=== PATIENT | female | born 1995 ===

== ENCOUNTER 2017-05-25 12:25 | Emergency (ER) | payer MEDICAID, OTHER ==
[2017-05-25 12:25] VITALS: BMI 17.5
[2017-05-25 12:33] VITALS: TEMP 97.8; O2SAT 99
[2017-05-25] MEDS ORDERED: Bacitracin 500 Units/gm Oint Foilpak UD TOP ONE (12:55)
[2017-05-25] MEDS ORDERED: Tetanus/Diphtheria Toxoids 0.5 ml Syringe IM ONE (12:55)
--- NOTE | 2017-05-25 12:58 | C.PDOC ---
History Of Present Illness 21 year old female presents to the ED for tetanus vaccination, as per request of employer, following a cut to the left fourth digit with a box loader yesterday while at work. Patient reports wound was bleeding at the time, it was cleaned, and has stopped bleeding and is well healing. She denies fever, discharge, sensory changes, or other injuries. Time Seen by Provider: 05/25/17 12:34 Chief Complaint (Nursing): Abnormal Skin Integrity History Per: Patient History/Exam Limitations: no limitations Onset/Duration Of Symptoms: Days (1 day ) Current Symptoms Are (Timing): Still Present Location Of Injury: Left: Hand (fourth digit ) Quality Of Symptoms: denies: Painful, Draining Severity: Mild Past Medical History Reviewed: Historical Data, Nursing Documentation, Vital Signs Vital Signs: Last Vital Signs Temp 97.8 F 05/25/17 12:28 Pulse 72 05/25/17 13:18 Resp 20 05/25/17 13:18 BP 118/72 05/25/17 13:18 Pulse Ox 99 05/25/17 17:29 - Medical History PMH: Anemia, Anxiety, Depression Family History: States: No Known Family Hx - Social History Hx Tobacco Use: Yes Hx Alcohol Use: Yes Hx Substance Use: No - Immunization History Hx Tetanus Toxoid Vaccination: No Hx Influenza Vaccination: No Hx Pneumococcal Vaccination: No Review Of Systems Except As Marked, All Systems Reviewed And Found Negative. Constitutional: Negative for: Fever, Chills Skin: Positive for: Other (skin wound on finger). Negative for: Rash Neurological: Negative for: Weakness, Numbness Physical Exam - Physical Exam Appears: Well, Non-toxic, No Acute Distress Skin: Warm, Dry, Other (0.5 cm superficial laceration to dorsal left hand fourth digit, immediately distal to MCP. No bleeding or discharge) Cardiovascular: Rhythm Regular Respiratory: Normal Breath Sounds, No Rales, No Rhonchi, No Wheezing Extremity: Normal ROM, No Tenderness, Capillary Refill (< 2 sec all digits ), No Deformity, No Swelling Extremity: Bilateral: Normal Color And Temperature, Normal ROM Pulses: Left Radial: Normal, Right Radial: Normal Neurological/Psych: Oriented x3, Normal Motor, Normal Sensation Gait: Steady ED Course And Treatment O2 Sat by Pulse Oximetry: 99 (RA) Pulse Ox Interpretation: Normal Progress Note: Patient given IM tetanus vaccination. Bacitracin applied to laceration by nurse + band aid. She was instructed to follow up with PMD/ clinic in 1-2 days, and she understands she should return to ED if symptoms worsen. Disposition Counseled Patient/Family Regarding: Studies Performed, Diagnosis, Need For Followup - Disposition Referrals: Shaik Sigala MD [Staff Provider] - Disposition: HOME/ ROUTINE Disposition Time: 13:10 Condition: STABLE Additional Instructions: FOLLOW UP WITH YOUR DOCTOR IN 1-2 DAYS RETURN TO ER IF YOU DEVELOP ANY REDNESS, SWELLING, PAIN, FEVER, DISCHARGE OR ANY OTHER CONCERNING SYMPTOMS Instructions: Finger Laceration (ED) Forms: [employer] (Italian), Work Excuse Print Language: VIETNAMESE - POA Present On Arrival: Falls Or Trauma - Clinical Impression Clinical Impression: Superficial laceration of skin, Tetanus toxoid vaccination administered at current visit - Scribe Statement The provider has reviewed the documentation as recorded by the Scribe Karoline Wilkerson All medical record entries made by the Scribe were at my direction and personally dictated by me. I have reviewed the chart and agree that the record accurately reflects my personal performance of the history, physical exam, medical decision making, and the department course for this patient. I have also personally directed, reviewed, and agree with the discharge instructions and disposition.
[2017-05-25] MEDS ORDERED: Bacitracin 500 Units/gm Oint Foilpak UD ONE (13:10)
[2017-05-25 13:18] VITALS: BP 118/72; PULSE 72; RESP 20
== END 2017-05-25 13:30 | disposition home or self-care (01) ==
LOC: C.ER 12:25
DX: Z23 Encounter for immunization (principal); S61.215D Laceration without foreign body of left ring finger without damage to nail, subsequent encounter; W45.8XXD Other foreign body or object entering through skin, subsequent encounter

== ENCOUNTER 2017-12-12 10:09 | Emergency (ER) | payer MEDICAID, OTHER ==
[2017-12-12 10:10] VITALS: BMI 17.5
[2017-12-12 10:55] VITALS: BP 108/77; PULSE 87; RESP 16; TEMP 98.3; O2SAT 98
--- NOTE | 2017-12-12 11:46 | C.PDOC ---
Time Seen by Provider: 12/12/17 11:00 Chief Complaint (Nursing): Anxiety Past Medical History Vital Signs: Last Vital Signs Temp 98.3 F 12/12/17 10:52 Pulse 87 12/12/17 10:52 Resp 16 12/12/17 10:52 BP 108/77 12/12/17 10:52 Pulse Ox 98 12/12/17 11:46 - Medical History PMH: Anemia, Anxiety, Depression Denies: Chronic Kidney Disease Family History: States: Unknown Family Hx - Social History Hx Tobacco Use: Yes Hx Alcohol Use: Yes Hx Substance Use: No - Immunization History Hx Tetanus Toxoid Vaccination: No Hx Influenza Vaccination: No Hx Pneumococcal Vaccination: No ED Course And Treatment O2 Sat by Pulse Oximetry: 98 Medical Decision Making Medical Decision Making: crisis team to see pt. 1216 pm pt seen by Lamar from crisis team, to be discharged with outpatient f/ u with Dr Vega. Disposition Counseled Patient/Family Regarding: Diagnosis, Need For Followup - Disposition Referrals: Mariely Vega MD [Staff Provider] - Disposition: HOME/ ROUTINE Disposition Time: 12:16 Condition: GOOD Additional Instructions: Please call Dr Vega at [phone] to make an outpatient follow up visit. Return to ER for any worsening symptoms. Instructions: Generalized Anxiety Disorder Forms: [facility] (Uzbek), General Discharge Instructions - Clinical Impression Clinical Impression: Generalized anxiety disorder
== END 2017-12-12 12:41 | disposition home or self-care (01) ==
LOC: C.ER 10:09
DX: F41.1 Generalized anxiety disorder (principal); Z72.0 Tobacco use

== ENCOUNTER 2019-01-02 13:15 | Emergency (ER) | payer SELFPAY ==
[2019-01-02 13:24] VITALS: BMI 18.8
[2019-01-02 13:27] VITALS: BP 110/79; PULSE 77; RESP 18; TEMP 98.8; O2SAT 100
--- NOTE | 2019-01-02 13:39 | C.PDOC ---
History Of Present Illness 23 year old female presents to ED with complaint of soreness to both breasts. She states that she woke up this morning noticing that the left breast was larger than the right. She is concerned because she had a benign cyst removed from the left breast. Patient's last normal menstrual period was December 09. She denies redness, rash, discharge from the nipples, trauma, breast feeding, or fever. Time Seen by Provider: 01/02/19 13:29 Chief Complaint (Nursing): Breast Problem History Per: Patient History/Exam Limitations: no limitations Onset/Duration Of Symptoms: Unknown Current Symptoms Are (Timing): Still Present Past Medical History Reviewed: Historical Data, Nursing Documentation, Vital Signs Vital Signs: Last Vital Signs Temp 98.8 F 01/02/19 13:24 Pulse 77 01/02/19 13:24 Resp 18 01/02/19 13:24 BP 110/79 01/02/19 13:24 Pulse Ox 100 01/02/19 13:24 Primary Care Provider: Non [facility] Provider, - Medical History PMH: Anemia, Anxiety, Bipolar Disorder, Depression Denies: Diabetes, Hepatitis, HIV, HTN, Chronic Kidney Disease, Seizures, Sexually Transmitted Disease Other Surgeries: Cyst removal from Left breast Family History: States: Unknown Family Hx - Social History Hx Tobacco Use: Yes Hx Alcohol Use: Yes Hx Substance Use: No - Immunization History Hx Tetanus Toxoid Vaccination: No Hx Influenza Vaccination: No Hx Pneumococcal Vaccination: No Review Of Systems Except As Marked, All Systems Reviewed And Found Negative. Musculoskeletal: Positive for: Other (soreness to the bilateral breast, noticed left breast is larger than the right) Physical Exam - Physical Exam Appears: Well, Non-toxic, No Acute Distress Skin: Normal Color, Warm, Dry, No Rash, Other (well--healed surgical scar beneath thr right areola) Head: Atraumatic, Normacephalic Eye(s): bilateral: Normal Inspection Oral Mucosa: Moist Neck: Normal, Normal ROM, Supple Lymphatic: No Adenopathy, No Other (axillar lymphadenopathy) Chest: Symmetrical, No Deformity, Tenderness (to the left breast diffusely, no erythema, no warmth, no nipple inversion, no discharge), Other (left breast slightly larger than the right; no masses on either breast, no tenderness to the right breast.) Respiratory: Other (Respirations regular and unlabored.) Extremity: Capillary Refill (< 2 seconds) Extremity: Bilateral: Atraumatic Neurological/Psych: Oriented x3, Normal Speech, Normal Cognition ED Course And Treatment O2 Sat by Pulse Oximetry: 100 (in RA) Pulse Ox Interpretation: Normal Medical Decision Making Medical Decision Making: Impression: 23 year old female presents to ED with complaint of soreness to both breasts. Initial Plan: Urine preg POC, negative. 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 Will treat with NSAID and antibiotic for possible developing infection. Will return with any fevers, worsening pain or swelling, discharge or redness. Aware would possibly need US or mammogram. Agrees to treatment plan and follow-up. 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 Return if symptoms worsen or persist. 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 (Kezia Moore) - Scribe Statement The provider has reviewed the documentation as recorded by the Scribe (Kezia Moore) All medical record entries made by the Scribe were at my direction and personally dictated by me. I have reviewed the chart and agree that the record accurately reflects my personal performance of the history, physical exam, medical decision making, and the department course for this patient. I have also personally directed, reviewed, and agree with the discharge instructions and disposition.
== END 2019-01-02 14:01 | disposition home or self-care (01) ==
LOC: C.ER 13:15
DX: N64.4 Mastodynia (principal); N64.9 Disorder of breast, unspecified; Z72.0 Tobacco use; F31.9 Bipolar disorder, unspecified